=== PATIENT | female | born 1975 ===

== ENCOUNTER 2017-10-30 22:44 | Emergency (ER) | payer MEDICAID, OTHER ==
[2017-10-30 22:45] VITALS: BMI 35.1
[2017-10-30] MEDS ORDERED: Sodium Chloride 0.9% 1,000 ML IV ONE (23:02)
--- NOTE | 2017-10-30 23:02 | C.PDOC ---
History Of Present Illness The patient presents to the ED for psychiatric evaluation. Patient states she has been depressed over the past year due to her divorce and increased stress in her life. Patient states she could not deal with her stress and took nine 0.5mg tablets of Xanax around 2-3 hours prior to arrival, which prompted her friend to call 911. 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 Patient denies suicidal/homicidal ideation at this time. Time Seen by Provider: 10/30/17 23:02 Chief Complaint (Nursing): Psychiatric Evaluation History Per: Patient History/Exam Limitations: no limitations Onset/Duration Of Symptoms: Hrs Current Symptoms Are (Timing): Still Present Suicide/Self Injury Attempted (Context): None Modifying Factor(s): None Severity: None Pain Scale Rating Of: 0 Associated Symptoms: Depression, Suicidal Thoughts, Suicidal Plan Involuntary Hold By: None Recent travel outside of the [place]: No Additional History Per: Patient Past Medical History Reviewed: Historical Data, Nursing Documentation, Vital Signs Vital Signs: Last Vital Signs Temp 98.4 F 10/31/17 01:59 Pulse 76 10/31/17 03:58 Resp 18 10/31/17 03:58 BP 110/54 L 10/31/17 03:58 Pulse Ox 100 10/31/17 03:58 - Medical History PMH: Hypothyroidism Surgical History: (X 2) - [facility] Procedures MONITORING NOS (02/25/14) LOW CERVICAL (02/25/14) REPAIR OF INTESTINE NEC (02/25/14) Family History: States: Unknown Family Hx - Social History Hx Alcohol Use: No Hx Substance Use: No Review Of Systems Constitutional: Negative for: Fever, Chills Cardiovascular: Negative for: Chest Pain, Palpitations Respiratory: Negative for: Cough, Shortness of Breath Gastrointestinal: Negative for: Nausea, Vomiting, Abdominal Pain Skin: Negative for: Rash, Lesions, Jaundice, Bruising Neurological: Negative for: Weakness, Numbness Psych: Positive for: Depression, Suicidal ideation Physical Exam - Physical Exam Appears: Non-toxic, No Acute Distress Skin: Warm, Dry Head: Normacephalic Eye(s): bilateral: Normal Inspection Oral Mucosa: Moist Neck: Supple Chest: Symmetrical, No Deformity, No Tenderness Cardiovascular: Rhythm Regular, No Murmur Respiratory: No Rales, No Rhonchi, No Wheezing Extremity: Normal ROM, Capillary Refill (less than 2 seconds ) Neurological/Psych: Oriented x3 ED Course And Treatment - Laboratory Results Result Diagrams: 10/30/17 23:09 10/30/17 23:09 ECG: Interpreted By Me, Viewed By Me ECG Rhythm: Sinus Rhythm, Nonspecific Changes O2 Sat by Pulse Oximetry: 99 (on RA) Pulse Ox Interpretation: Normal Progress Note: Bloodwork, urinalysis, EKG ordered and reviewed. IV Fluids administered. Case discussed with Poison Control. Patient observed in the ED. Patient has been cleared for discharge by Dr. Mccullough. Reevaluation Time: 04:13 Reassessment Condition: Improved Disposition Counseled Patient/Family Regarding: Studies Performed, Diagnosis, Need For Followup - Disposition Referrals: [facility] [Outside] [facility] [Outside] Disposition: HOME/ ROUTINE Disposition Time: 23:02 Condition: FAIR Instructions: Depression, Adult (DC) Forms: [employer] (Hungarian) - Clinical Impression Clinical Impression: Moderate major depression, single episode - Scribe Statement The provider has reviewed the documentation as recorded by the Scribe (Marleny Sweet) Provider Attestation: All medical record entries made by the Scribe were at my direction and personally dictated by me. I have reviewed the chart and agree that the record accurately reflects my personal performance of the history, physical exam, medical decision making, and the department course for this patient. I have also personally directed, reviewed, and agree with the discharge instructions and disposition.
[2017-10-30 23:13] LABS: BASO % 0.4 % (0.0-2.0); EOS # 0.1 K/uL (0.0-0.7); EOS % 0.8 % (0.0-4.0); HEMOGLOBIN 9.5 g/dL (11.0-16.0); LYMPH # 2.1 K/uL (1.0-4.3); LYMPH % 21.1 % (20.0-40.0); MEAN CELL VOLUME 72.7 fL (81.0-99.0); MEAN CORPUSCULAR HEMOGLOBIN 23.1 pg (27.0-31.0); MEAN CORPUSCULAR HGB CONC 31.8 g/dL (33.0-37.0); MEAN PLATELET VOLUME 8.1 fL (7.2-11.7); MONO # 0.8 K/uL (0.0-0.8); MONO % 7.8 % (0.0-10.0); NEUT # 6.8 K/uL (1.8-7.0); NEUT % 69.9 % (50.0-75.0); RBC 4.12 Mil/uL (3.80-5.20); RED CELL DISTRIBUTION WIDTH 19.4 % (11.5-14.5); WHITE BLOOD COUNT 9.7 K/uL (4.8-10.8)
[2017-10-30 23:23] LABS: ACETAMINOPHEN < 10.0 ug/mL (10.0-30.0); SALICYLATE < 1.0 mg/dL 1
[2017-10-30 23:25] LABS: ALB/GLOB RATIO 1.2 (1.0-2.1); ALBUMIN 4.4 g/dL (3.5-5.0); ALT/SGPT 25 U/L (9-52); AST/SGOT 20 U/L (14-36); BLOOD UREA NITROGEN 13 mg/dL (7-17); GFR AFRICAN-AMERICAN > 60; GFR NON-AFRICAN AMERICAN > 60
[2017-10-31] MEDS ORDERED: Sodium Chloride 0.9% 1,000 ML IV ONE (00:22)
[2017-10-31 00:49] LABS: HCG,QUALITATIVE URINE NEGATIVE (NEGATIVE)
[2017-10-31 00:52] LABS: SQUAMOUS EPITHIAL 4 /hpf (0-5); URINE BILIRUBIN NEGATIVE (NEGATIVE); URINE BLOOD NEGATIVE (NEGATIVE); URINE CLARITY Clear (Clear); URINE COLOR Straw (YELLOW); URINE GLUCOSE (UA) NORMAL (Normal); URINE LEUKOCYTE ESTERASE NEG Leu/uL (Negative); URINE PROTEIN NEGATIVE (NEGATIVE); URINE UROBILINOGEN NORMAL mg/dL (0.2-1.0)
[2017-10-31 01:21] LABS: BARBITURATES, UR NEGATIVE (NEGATIVE); OPIATES, UR NEGATIVE (NEGATIVE); PHENCYCLIDINE, UR NEGATIVE (NEGATIVE)
[2017-10-31] MEDS ORDERED: Sodium Chloride 0.9% 2,000 ML ONE (01:32)
[2017-10-31 01:44] LABS: BENZODIAZEPINES, UR POSITIVE (NEGATIVE)
[2017-10-31 02:02] VITALS: TEMP 98.4
[2017-10-31 03:59] VITALS: BP 110/54; PULSE 76; RESP 18
[2017-10-31 04:14] VITALS: O2SAT 99
== END 2017-10-31 04:29 | disposition home or self-care (01) ==
LOC: C.ER 22:44
DX: F32.1 Major depressive disorder, single episode, moderate (principal); E03.9 Hypothyroidism, unspecified
CPT/HCPCS: 80053; 80320; 80324; 80329; 80345; 80346; 80349; 80353; 80358; 80361; 81001; 83992; 84703; 85025; 96360; 96361; 99285; J7040